=== PATIENT | female | born 1970 | race Caucasian/White ===

== ENCOUNTER → 2016-05-03 | Outpatient (CLI) | payer BC ==
--- NOTE | 2016-05-03 10:20 | REPMRS ---
Patient History The patient states she had a clinical breast exam in 04/2016. Family history of prostate cancer in father at age 54 and breast cancer in paternal aunt under age 50. Benign FNA biopsy of the left breast, May 18, 2009. Digital Woman Screen Mammo: May 03, 2016 - Exam #: [id number] Bilateral CC and MLO view(s) were taken. Technologist: Daphnie Maurice, Technologist Prior study comparison: February 19, 2015, digital woman screen mammo performed at [facility]. November 08, 2013, digital woman screen mammo performed at [facility]. FINDINGS: The breast tissue is heterogeneously dense. This may lower the sensitivity of mammography. There has been no change in the appearance of the mammogram from the prior studies. There is a moderate amount of residual fibroglandular tissue which is fairly symmetric. There is no interval development of dominant mass, areas of architectural distortion, or clustered microcalcification typical of malignancy. ASSESSMENT: BI-RADS/ACR category 1 mammogram. Negative. Recommendation Routine screening mammogram in 1 year (for women over age 40). This mammogram was interpreted with the aid of an FDA-approved computer-aided dectection system. Electronically Signed By: Pako Grant MD 05/03/16 0419
== END ==
LOC: M WHC 09:36
PROVIDERS: ATTEND Nurse Practitioner Family
DX: Z12.31 Encounter for screening mammogram for malignant neoplasm of breast (principal)

== ENCOUNTER → 2016-10-12 | Outpatient (CLI) | payer BC ==
[2016-10-12 17:00] LABS: ALBUMIN/GLOBULIN RATIO 1.33 (1.00-1.93); ALKALINE PHOSPHATASE 71 U/L (45-117); ALT/SGPT 43 U/L (12-78); AMYLASE 66 U/L (25-115); ANION GAP 8 MEQ/L (8-16); AST/SGOT 29 U/L (15-37); BILIRUBIN,TOTAL 0.5 MG/DL (0.2-1.0); BLOOD UREA NITROGEN 15 MG/DL (7-18); CALCIUM LEVEL 9.2 MG/DL (8.5-10.1); CARBON DIOXIDE LEVEL 30 MEQ/L (21-32); CHLORIDE LEVEL 105 MEQ/L (98-107); CREATININE FOR GFR 0.72 MG/DL (0.55-1.02); GLOMERULAR FILTRATION RATE > 60.0 (>58); GLUCOSE, FASTING 88 MG/DL (70-105); POTASSIUM SERUM 4.4 MEQ/L (3.5-5.1); SODIUM LEVEL 143 MEQ/L (136-145)
[2016-10-12 17:57] LABS: BASO % 0.6 % (0.0-1.0); EOS # 0.2 K/mm3 (0.0-0.50); EOS % 4.1 % (0.0-3.0); LARGE UNSTAINED CELL # 0.1 K/mm3 (0.0-0.4); LARGE UNSTAINED CELL % 1.6 % (0.0-4.0); LYMPH # 1.4 K/mm3 (1.5-4.5); LYMPH % 22.4 % (24.0-44.0); MEAN CORPUSCULAR HEMOGLOBIN 28.6 pg (27.0-33.0); MEAN CORPUSCULAR HGB CONC 32.7 g/dl (32.0-36.5); MEAN CORPUSCULAR VOLUME 87.4 fl (80.0-96.0); MONO # 0.3 K/mm3 (0.0-0.8); MONO % 4.3 % (0.0-5.0); NEUTROPHILS # 4.1 K/mm3 (1.8-7.7); PLATELET COUNT, AUTOMATED 399 k/mm3 (150-450); RED CELL DISTRIBUTION WIDTH 13.2 % (11.5-14.5); WHITE BLOOD COUNT 6.2 K/mm3 (4.0-10.0)
[2016-10-13 08:40] LABS: CONTROL LINE HPYORI INT CTR LINE PRESENT
== END ==
LOC: M WUC 11:05
PROVIDERS: ATTEND Family Medicine
DX: R10.84 Generalized abdominal pain (principal)

== ENCOUNTER 2017-04-14 07:57 | Day surgery (SDC) | payer BC ==
[2017-04-14] MEDS: NS 1,000 ML IV (08:30)
[2017-04-14] MEDS ORDERED: PROPOFOL 200 MG/20 ML VIAL As Ordered (09:59)
[2017-04-14] MEDS ORDERED: LIDOCAINE 2% INJ 100 MG/5 ML SYRINGE As Ordered (09:59)
== END 2017-04-14 11:04 | disposition home or self-care (01) ==
LOC: M OPP 07:57
DX: K62.5 Hemorrhage of anus and rectum (principal); R19.4 Change in bowel habit; R10.13 Epigastric pain; D12.4 Benign neoplasm of descending colon; D12.7 Benign neoplasm of rectosigmoid junction; K57.30 Diverticulosis of large intestine without perforation or abscess without bleeding; K64.8 Other hemorrhoids; B96.81 Helicobacter pylori [H. pylori] as the cause of diseases classified elsewhere; R11.10 Vomiting, unspecified; K29.70 Gastritis, unspecified, without bleeding; K44.9 Diaphragmatic hernia without obstruction or gangrene; K21.9 Gastro-esophageal reflux disease without esophagitis; R12 Heartburn; M79.7 Fibromyalgia; F41.9 Anxiety disorder, unspecified; Z88.2 Allergy status to sulfonamides; Z79.899 Other long term (current) drug therapy; Z80.1 Family history of malignant neoplasm of trachea, bronchus and lung; Z80.42 Family history of malignant neoplasm of prostate
CPT/HCPCS: 45380

== ENCOUNTER → 2017-08-14 | Outpatient (CLI) | payer BC | LOC: M WHC 13:30 | DX: Z12.31 Encounter for screening mammogram for malignant neoplasm of breast (principal) | CPT/HCPCS: 77067 ==

== ENCOUNTER 2018-11-26 06:30 | Emergency (ER) | payer BC ==
[~2018-11-26] VITALS: Ht 162.6 cm; Wt 61.8 kg
[~2018-11-26 06:30] MED LIST: AMIT10TA; GABA-843; OMEP40CA97
[2018-11-26] MEDS ORDERED: BENA25CA4 PO (06:42)
[2018-11-26] MEDS ORDERED: NS 1,000 ML IV SCH (07:09)
[2018-11-26] MEDS ORDERED: CLINDAMYCIN 600 MG in IV 1 EA IV ONE (07:15)
[2018-11-26] MEDS ORDERED: KETOROLAC 30 MG/ML VIAL (J1885) IV ONE (07:15)
[2018-11-26 07:58] LABS: BASO % 0.4 % (0.0-1.0); EOS # 0.1 10^3/uL (0.0-0.5); EOS % 2.6 % (0.0-3.0); HEMATOCRIT 41.6 % (36.0-47.0); HEMOGLOBIN 13.3 g/dl (12.0-15.5); LYMPH # 0.9 10^3/uL (1.5-5.0); LYMPH % 17.1 % (24.0-44.0); MEAN CORPUSCULAR HEMOGLOBIN 28.3 pg (27.0-33.0); MEAN CORPUSCULAR VOLUME 88.5 fl (80.0-96.0); MONO # 0.4 10^3/uL (0.0-0.8); MONO % 8.1 % (0.0-5.0); NEUTROPHILS # 3.9 10^3/uL (1.5-8.5); NEUTROPHILS % 71.4 % (36.0-66.0); PLATELET COUNT, AUTOMATED 280 10^3/uL (150-450); WHITE BLOOD COUNT 5.5 10^3/uL (4.0-10.0)
[2018-11-26 08:18] LABS: ALBUMIN 4.1 GM/DL (3.2-5.2); ALT/SGPT 37 U/L (12-78); AMYLASE 61 U/L (25-115); BILIRUBIN,DIRECT 0.1 MG/DL (0.0-0.2); BILIRUBIN,TOTAL 0.8 MG/DL (0.2-1.0); BLOOD UREA NITROGEN 15 MG/DL (7-18); C REACTIVE PROTEIN QUANTITATIV 0.42 MG/DL (0.00-0.30); CALCIUM LEVEL 9.2 MG/DL (8.5-10.1); CARBON DIOXIDE LEVEL 27 MEQ/L (21-32); CHLORIDE LEVEL 108 MEQ/L (98-107); CREATININE FOR GFR 0.76 MG/DL (0.55-1.30); GLOMERULAR FILTRATION RATE > 60.0 (>51); GLUCOSE, FASTING 96 MG/DL (70-100); POTASSIUM SERUM 4.5 MEQ/L (3.5-5.1); SODIUM LEVEL 140 MEQ/L (136-145); TOTAL PROTEIN 7.4 GM/DL (6.4-8.2)
[2018-11-26 08:26] LABS: INR 1.01
[2018-11-26 08:26] LABS: ERYTHROCYTE SEDIMENTATION RATE 10 mm/hr (0-30)
[2018-11-26 08:27] LABS: PARTIAL THROMBOPLASTIN TIME 39.2 SECONDS (25.0-38.4)
[2018-11-26] MEDS ORDERED: CEPHALEXIN 500 MG CAP PO ONE (08:45)
[2018-11-26] MEDS ORDERED: CEPH500C PO (08:48)
[2018-11-26] MEDS ORDERED: IBUP80TA PO (08:50)
[2018-11-26 09:07] VITALS: BP 115/70
== END 2018-11-26 09:09 | disposition home or self-care (01) ==
LOC: M ED 06:30
DX: L03.113 Cellulitis of right upper limb (principal); M79.7 Fibromyalgia; F41.9 Anxiety disorder, unspecified; Z79.899 Other long term (current) drug therapy; Z88.2 Allergy status to sulfonamides
CPT/HCPCS: 80048; 80076; 82150; 83605; 85025; 85610; 85652; 85730; 86140; 87040; 96365; 96375; 99284; J1885

== ENCOUNTER → 2019-02-25 | Outpatient (REF) | payer BC ==
[~2019-02-25] MED LIST changes: +BENA25CA4 PO; +CEPH500C PO; +IBUP80TA PO
[2019-02-25 12:28] LABS: CHOLESTEROL RISK RATIO 5.341 (<5)
== END ==
LOC: M LABDRAW1 11:43
PROVIDERS: ATTEND Physician Assistant Medical
DX: E55.9 Vitamin D deficiency, unspecified (principal); E78.2 Mixed hyperlipidemia

== ENCOUNTER → 2020-11-09 | Outpatient (CLI) | payer BC ==
[~2020-11-09] MED LIST changes: -AMIT10TA; +AMIT10TA7; +GABA-282; -GABA-843; +OMEP40CA4; -OMEP40CA97
[2020-11-09 12:15] LABS: ALBUMIN 4.1 GM/DL (3.2-5.2); ALT/SGPT 48 U/L (12-78); BILIRUBIN,TOTAL 0.5 MG/DL (0.2-1.0); BLOOD UREA NITROGEN 18 MG/DL (7-18); CALCIUM LEVEL 9.3 MG/DL (8.5-10.1); CARBON DIOXIDE LEVEL 30 MEQ/L (21-32); CHLORIDE LEVEL 110 MEQ/L (98-107); CHOLESTEROL LEVEL 216 MG/DL (<200); CHOLESTEROL RISK RATIO 4.595 (<5); CREATININE FOR GFR 0.85 MG/DL (0.55-1.30); GLOMERULAR FILTRATION RATE > 60.0 (>51); GLUCOSE, FASTING 101 MG/DL (70-100); HDL CHOLESTEROL 47 MG/DL (>40); LDL CHOLESTEROL 157 MG/DL (<100); NON-HDL-C 169 MG/DL; POTASSIUM SERUM 4.5 MEQ/L (3.5-5.1); SODIUM LEVEL 142 MEQ/L (136-145); TRIGLYCERIDES LEVEL 58 MG/DL (<150)
== END ==
LOC: M WUC 08:23
PROVIDERS: ATTEND Nurse Practitioner Family
DX: Z00.00 Encounter for general adult medical examination without abnormal findings (principal)

== ENCOUNTER → 2021-01-20 | Outpatient (CLI) | payer BC ==
--- NOTE | 2021-01-20 10:21 | REPMRS ---
Patient History The patient states she has not had a clinical breast exam in over a year. Family history of breast cancer under age 50 in paternal aunt, prostate cancer at age 54 in father. Benign FNA biopsy of the left breast, May 18, 2009. No Hormone Replacement Therapy Moderna vaccine 04/12/20 left arm. 05/08/20 left arm. booster 01/04/21 left arm. Patient states no breast complaints today. Patient has signed MRS History Sheet. Digital Woman Screen Mammo: January 20, 2021 - Exam #: [id number] Bilateral CC and MLO view(s) were taken. Technologist: RT Arline Prior study comparison: August 14, 2017, bilateral digital woman screen mammo performed at [facility]. May 03, 2016, digital woman screen mammo performed at [facility]. FINDINGS: The breast tissue is heterogeneously dense. This may lower the sensitivity of mammography. Screening. Digital screening (2D) mammography was performed bilaterally in the CC and MLO projections. Additionally, breast tomosynthesis (3D mammography) was performed bilaterally in the CC and MLO projections. Todays exam was compared to the prior exam/exams. By history, the patient has no complaints of a palpable breast abnormality or other significant breast complaints. The Volpara volumetric breast density category is C, the breasts are heterogenously dense which may obscure small masses. The breasts are unchanged in size and shape. There are no rosa-soft tissue densities or spiculated masses. There is no internal architectural distortion. There are no suspicious rosa-calcific clusters. Skin thickening or nipple retraction is not present. IMPRESSION: BI-RADS Category 2- Benign Findings. There is no evidence of malignant alteration of the breasts. Followup examination recommended in one year. This mammogram was read with the assistance of [employer],an FDA approved computer aided detection system for mammography. The lifetime Tyrer-Cuzick score is 11.7% Negative x-ray reports should not delay surgical consultation if a dominant or clinically suspicious mass is present. Due to the density of the breasts, MRI/whole breast screening ultrasound is warranted. Not all breast cancers can be identified by mammography. Therefore, we recommend that you continue to perform regular breast self-examination and physical examination and then promptly contact your physician of any concerns or changes. Adenosis and dense breasts may obscure an underlying neoplasm. No significant changes when compared with prior studies. Assessment: BI-RADS/ACR category 2 mammogram. Benign Findings. Recommendation Routine screening mammogram of both breasts in 1 year. Electronically Signed By: Leon Mcbride MD 01/20/21 2496
== END ==
LOC: M WHC 07:59
PROVIDERS: ATTEND Nurse Practitioner Family
DX: Z12.31 Encounter for screening mammogram for malignant neoplasm of breast (principal); Z80.3 Family history of malignant neoplasm of breast; Z80.42 Family history of malignant neoplasm of prostate

== ENCOUNTER → 2021-10-13 | Outpatient (CLI) | payer BC ==
[2021-10-13 12:03] LABS: BASO % 0.7 % (0.0-1.0); EOS # 0.2 10^3/uL (0.0-0.5); EOS % 2.4 % (0.0-3.0); HEMOGLOBIN 13.6 g/dl (12.0-15.5); LYMPH # 1.6 10^3/uL (1.5-5.0); LYMPH % 25.7 % (24.0-44.0); MEAN CORPUSCULAR HEMOGLOBIN 27.5 pg (27.0-33.0); MEAN CORPUSCULAR HGB CONC 30.9 g/dl (32.0-36.5); MEAN CORPUSCULAR VOLUME 89.1 fl (80.0-96.0); MONO # 0.5 10^3/uL (0.0-0.8); MONO % 7.5 % (2.0-8.0); NEUTROPHILS # 3.9 10^3/uL (1.5-8.5); NEUTROPHILS % 63.4 % (36.0-66.0); PLATELET COUNT, AUTOMATED 297 10^3/uL (150-450); RED BLOOD COUNT 4.94 10^6/uL (4.00-5.40); WHITE BLOOD COUNT 6.2 10^3/uL (4.0-10.0)
[2021-10-13 12:10] LABS: ALBUMIN 4.1 GM/DL (3.2-5.2); ALT/SGPT 28 U/L (12-78); BILIRUBIN,TOTAL 0.7 MG/DL (0.2-1.0); BLOOD UREA NITROGEN 13 MG/DL (7-18); CALCIUM LEVEL 9.3 MG/DL (8.5-10.1); CARBON DIOXIDE LEVEL 30 MEQ/L (21-32); CHLORIDE LEVEL 105 MEQ/L (98-107); CREATININE FOR GFR 0.85 MG/DL (0.55-1.30); GLOMERULAR FILTRATION RATE > 60.0 (>51); GLUCOSE, FASTING 102 MG/DL (70-100); POTASSIUM SERUM 4.1 MEQ/L (3.5-5.1); SODIUM LEVEL 140 MEQ/L (136-145); TOTAL PROTEIN 7.5 GM/DL (6.4-8.2)
[2021-10-13 12:33] LABS: ERYTHROCYTE SEDIMENTATION RATE 6 mm/hr (0-30)
== END ==
LOC: M WUC 09:32
PROVIDERS: ATTEND Physician Assistant
DX: J01.90 Acute sinusitis, unspecified (principal); R51.9 Headache, unspecified

== ENCOUNTER 2021-12-15 06:28 | Emergency (ER) | payer BC ==
[~2021-12-15] VITALS: Ht 162.6 cm; Wt 61.4 kg
[2021-12-15 07:15] LABS: BASO % 0.4 % (0.0-1.0); EOS # 0.1 10^3/uL (0.0-0.5); EOS % 2.6 % (0.0-3.0); HEMATOCRIT 37.8 % (36.0-47.0); HEMOGLOBIN 11.8 g/dl (12.0-15.5); LYMPH # 1.1 10^3/uL (1.5-5.0); LYMPH % 22.1 % (24.0-44.0); MEAN CORPUSCULAR HEMOGLOBIN 28.2 pg (27.0-33.0); MEAN CORPUSCULAR HGB CONC 31.2 g/dl (32.0-36.5); MEAN CORPUSCULAR VOLUME 90.4 fl (80.0-96.0); MONO # 0.4 10^3/uL (0.0-0.8); NEUTROPHILS # 3.4 10^3/uL (1.5-8.5); NEUTROPHILS % 67.5 % (36.0-66.0); PLATELET COUNT, AUTOMATED 250 10^3/uL (150-450); RED BLOOD COUNT 4.18 10^6/uL (4.00-5.40)
[2021-12-15] MEDS ORDERED: MORPHINE 2 MG/ML 1ML VIAL IV ONE (07:30)
[2021-12-15] MEDS ORDERED: diazePAM 10MG/2ML SYRINGE (J3360 PER 5MG) IV ONE (07:30)
[2021-12-15] MEDS ORDERED: ONDANSETRON 4MG 2ML VIAL IV ONE (07:30)
[2021-12-15 07:41] LABS: BLOOD UREA NITROGEN 27 MG/DL (7-18); CALCIUM LEVEL 9.5 MG/DL (8.5-10.1); CARBON DIOXIDE LEVEL 28 MEQ/L (21-32); CHLORIDE LEVEL 108 MEQ/L (98-107); CREATININE FOR GFR 0.86 MG/DL (0.55-1.30); GLOMERULAR FILTRATION RATE > 60.0 (>51); GLUCOSE, FASTING 110 MG/DL (70-100); POTASSIUM SERUM 4.2 MEQ/L (3.5-5.1); SODIUM LEVEL 140 MEQ/L (136-145)
[2021-12-15 07:49] LABS: CK-MB VALUE MASS < 1.0 NG/ML (<3.6); CPK CREATINE PHOSPHOKINASE 97 U/L (26-192); MB/CK RELATIVE INDEX 1.03 (< OR =4)
[2021-12-15 11:16] VITALS: BP 111/71
[2021-12-15] MEDS ORDERED: ACET-910 PO (13:59)
[2021-12-15] MEDS ORDERED: HOME MED LIST COMPLETE! XX SCH (14:00)
[2021-12-15] MEDS ORDERED: tiZANidine 4 MG TAB PO ONE (15:45)
[2021-12-15] MEDS ORDERED: PERCOCET 5MG/325MG TAB PO ONE (15:45)
[2021-12-15] MEDS ORDERED: PERC5TAB12 PO (15:52)
[2021-12-15] MEDS ORDERED: TIZA2CAP PO (15:52)
== END 2021-12-15 16:18 | disposition home or self-care (01) ==
LOC: M ED 06:28
DX: M62.838 Other muscle spasm (principal); M50.121 Cervical disc disorder at C4-C5 level with radiculopathy; Z90.710 Acquired absence of both cervix and uterus; Z88.2 Allergy status to sulfonamides; Z79.899 Other long term (current) drug therapy
CPT/HCPCS: 71045; 72141; 80048; 82550; 82553; 84484; 85025; 93005; 93041; 94760; 96374; 96375; 99285; J2270; J2405; J3360

== ENCOUNTER → 2022-11-04 | Outpatient (CLI) | payer BC ==
[~2022-11-04] MED LIST changes: +ACET-910 PO; +PERC5TAB12 PO; +TIZA2CAP PO
[2022-11-04 11:07] LABS: ALBUMIN 3.8 G/DL (3.2-5.2); ALKALINE PHOSPHATASE 60 U/L (46-116); ALT/SGPT 29 U/L (7.0-40); AST/SGOT 22 U/L (<34); BILIRUBIN,TOTAL 0.8 MG/DL (0.3-1.2); BLOOD UREA NITROGEN 16 MG/DL (9-23); CALCIUM LEVEL 8.9 MG/DL (8.5-10.1); CARBON DIOXIDE LEVEL 30 MMOL/L (20-31); CHLORIDE LEVEL 108 MMOL/L (98-107); CHOLESTEROL LEVEL 186 MG/DL (<200); CREATININE FOR GFR 0.71 MG/DL (0.55-1.30); GLOMERULAR FILTRATION RATE > 60.0 (>51); GLUCOSE, FASTING 88 MG/DL (60-100); HDL CHOLESTEROL 40.4 MG/DL (>40); NON-HDL-C 145.6 MG/DL; POTASSIUM SERUM 4.5 MMOL/L (3.5-5.1); SODIUM LEVEL 143 MMOL/L (136-145); TOTAL PROTEIN 6.3 G/DL (5.7-8.2); TRIGLYCERIDES LEVEL 108 MG/DL (<150)
[2022-11-04 11:09] LABS: TOTAL 25(OH) VITAMIN D 22.7 NG/ML (20.0-100.0)
== END ==
LOC: M WUC 08:21
PROVIDERS: ATTEND Nurse Practitioner Family
DX: E78.2 Mixed hyperlipidemia (principal); E55.9 Vitamin D deficiency, unspecified

== ENCOUNTER → 2023-03-15 | Outpatient (CLI) | payer BC | LOC: M ADAMS 08:19 | PROVIDERS: ATTEND Nurse Practitioner Family | DX: M25.552 Pain in left hip (principal); M47.816 Spondylosis without myelopathy or radiculopathy, lumbar region ==

== ENCOUNTER → 2023-03-28 | Outpatient (CLI) | payer BC | LOC: M WHC 07:24 | PROVIDERS: ATTEND Nurse Practitioner Family | DX: Z12.31 Encounter for screening mammogram for malignant neoplasm of breast (principal); R92.323 Mammographic fibroglandular density, bilateral breasts ==

== ENCOUNTER → 2023-08-24 | Outpatient (CLI) | payer OTHER | LOC: M WUC 11:40 | PROVIDERS: ATTEND Nurse Practitioner Family | DX: R05.9 Cough, unspecified (principal) ==

== ENCOUNTER 2023-09-27 18:07 | Emergency (ER) | payer OTHER ==
[~2023-09-27] VITALS: Ht 162.6 cm; Wt 62.3 kg
[2023-09-27] MEDS: methylPREDNISolone 125MG 2ML VIAL IV ONE (18:21)
[2023-09-27] MEDS: FAMOTIDINE 20MG/2ML VIAL IVP ONE (18:23)
[2023-09-27 18:24] VITALS: TEMP 97
[2023-09-27 18:33] LABS: BASO % 0.3 % (0.0-1.0); EOS # 0.1 10^3/uL (0.0-0.5); EOS % 1.5 % (0.0-3.0); HEMATOCRIT 42.6 % (36.0-47.0); HEMOGLOBIN 14.2 g/dl (12.0-15.5); LYMPH # 3.6 10^3/uL (1.5-5.0); LYMPH % 48.8 % (24.0-44.0); MEAN CORPUSCULAR HEMOGLOBIN 28.5 pg (27.0-33.0); MEAN CORPUSCULAR HGB CONC 33.3 g/dl (32.0-36.5); MEAN CORPUSCULAR VOLUME 85.4 fl (80.0-96.0); MONO # 0.5 10^3/uL (0.0-0.8); MONO % 6.6 % (2.0-8.0); NEUTROPHILS # 3.1 10^3/uL (1.5-8.5); NEUTROPHILS % 42.4 % (36.0-66.0); PLATELET COUNT, AUTOMATED 338 10^3/uL (150-450); RED BLOOD COUNT 4.99 10^6/uL (4.00-5.40); WHITE BLOOD COUNT 7.3 10^3/uL (4.0-10.0)
[2023-09-27 18:58] LABS: CK-MB VALUE MASS < 1.0 NG/ML (<3.6)
[2023-09-27 19:00] LABS: BLOOD UREA NITROGEN 19 MG/DL (9-23); CALCIUM LEVEL 9.6 MG/DL (8.5-10.1); CARBON DIOXIDE LEVEL 24 MMOL/L (20-31); CHLORIDE LEVEL 107 MMOL/L (98-107); CPK CREATINE PHOSPHOKINASE 112 U/L (34-145); CREATININE FOR GFR 0.84 MG/DL (0.55-1.30); GLOMERULAR FILTRATION RATE > 60.0 (>51); GLUCOSE, FASTING 160 MG/DL (60-100); MB/CK RELATIVE INDEX 0.89 (< OR =4); POTASSIUM SERUM 3.8 MMOL/L (3.5-5.1); SODIUM LEVEL 141 MMOL/L (136-145)
[2023-09-27 20:10] LABS: CK-MB VALUE MASS < 1.0 NG/ML (<3.6)
[2023-09-27 20:12] LABS: CPK CREATINE PHOSPHOKINASE 114 U/L (34-145); MB/CK RELATIVE INDEX 0.87 (< OR =4)
[2023-09-27] MEDS: NS 1,000 ML IV ONE (20:33)
[2023-09-27] MEDS ORDERED: EPIP0.3I2 IM (22:04)
[2023-09-27 23:10] VITALS: BP 121/69; O2SAT 99
== END 2023-09-27 23:12 | disposition home or self-care (01) ==
LOC: M ED 18:07
DX: S30.0XXA Contusion of lower back and pelvis, initial encounter (principal); T63.441A Toxic effect of venom of bees, accidental (unintentional), initial encounter; I45.81 Long QT syndrome; M47.812 Spondylosis without myelopathy or radiculopathy, cervical region; M25.78 Osteophyte, vertebrae; M50.30 Other cervical disc degeneration, unspecified cervical region; M79.7 Fibromyalgia; F41.9 Anxiety disorder, unspecified; Z79.899 Other long term (current) drug therapy; Z79.1 Long term (current) use of non-steroidal anti-inflammatories (NSAID); Z91.030 Bee allergy status; Z88.2 Allergy status to sulfonamides; Y92.9 Unspecified place or not applicable; Y93.89 Activity, other specified; Y99.9 Unspecified external cause status
CPT/HCPCS: 70450; 71046; 72125; 72192; 80048; 82550; 82553; 84484; 85025; 93005; 93041; 94760; 96374; 96375; 99285; J2919; S0028

== ENCOUNTER → 2023-11-08 | Outpatient (CLI) | payer OTHER ==
[~2023-11-08] MED LIST changes: +EPIP0.3I2 IM
[2023-11-08 10:42] LABS: ALKALINE PHOSPHATASE 68 U/L (46-116); ALT/SGPT 30 U/L (7.0-40); AST/SGOT 20 U/L (<34); BILIRUBIN,TOTAL 0.6 MG/DL (0.3-1.2); BLOOD UREA NITROGEN 15 MG/DL (9-23); CALCIUM LEVEL 9.2 MG/DL (8.5-10.1); CARBON DIOXIDE LEVEL 29 MMOL/L (20-31); CHLORIDE LEVEL 109 MMOL/L (98-107); CHOLESTEROL LEVEL 262 MG/DL (<200); CHOLESTEROL RISK RATIO 5.99 (<5); CREATININE FOR GFR 0.75 MG/DL (0.55-1.30); GLOMERULAR FILTRATION RATE > 60.0 (>51); GLUCOSE, FASTING 94 MG/DL (60-100); HDL CHOLESTEROL 43.7 MG/DL (>40); LDL CHOLESTEROL 197.1 MG/DL (<100); NON-HDL-C 218.3 MG/DL; POTASSIUM SERUM 4.5 MMOL/L (3.5-5.1); SODIUM LEVEL 140 MMOL/L (136-145); TOTAL PROTEIN 6.7 G/DL (5.7-8.2); TRIGLYCERIDES LEVEL 106 MG/DL (<150)
[2023-11-08 10:45] LABS: TOTAL 25(OH) VITAMIN D 30.7 NG/ML (20.0-100.0)
== END ==
LOC: M WUC 08:13
PROVIDERS: ATTEND Nurse Practitioner Family
DX: E78.2 Mixed hyperlipidemia (principal); E55.9 Vitamin D deficiency, unspecified

== ENCOUNTER → 2024-02-13 | Outpatient (CLI) | payer OTHER ==
[~2024-02-13] MED LIST changes: +GABA-1172; -GABA-282
[2024-02-13 10:23] LABS: BASO % 0.4 % (0.0-1.0); EOS # 0.1 10^3/uL (0.0-0.5); EOS % 0.7 % (0.0-3.0); HEMATOCRIT 42.6 % (36.0-47.0); HEMOGLOBIN 13.8 g/dl (12.0-15.5); MEAN CORPUSCULAR HEMOGLOBIN 28.2 pg (27.0-33.0); MEAN CORPUSCULAR HGB CONC 32.4 g/dl (32.0-36.5); MEAN CORPUSCULAR VOLUME 86.9 fl (80.0-96.0); MONO # 0.6 10^3/uL (0.0-0.8); MONO % 7.4 % (2.0-8.0); NEUTROPHILS # 5.8 10^3/uL (1.5-8.5); NEUTROPHILS % 68.1 % (36.0-66.0); PLATELET COUNT, AUTOMATED 320 10^3/uL (150-450); WHITE BLOOD COUNT 8.6 10^3/uL (4.0-10.0)
[2024-02-13 10:27] LABS: ERYTHROCYTE SEDIMENTATION RATE 10 mm/hr (0-30); URIC ACID 4.1 MG/DL (3.1-7.8)
[2024-02-13 10:30] LABS: ALBUMIN 4.3 G/DL (3.2-5.2); ALKALINE PHOSPHATASE 65 U/L (35-104); ALT/SGPT 26 U/L (7.0-40); AST/SGOT 18 U/L (<34); BILIRUBIN,TOTAL 0.7 MG/DL (0.3-1.2); BLOOD UREA NITROGEN 18 MG/DL (9-23); C REACTIVE PROTEIN QUANTITATIV < 0.50 MG/DL (<1.0); CARBON DIOXIDE LEVEL 31 MMOL/L (20-31); CHLORIDE LEVEL 107 MMOL/L (98-107); CREATININE FOR GFR 0.75 MG/DL (0.55-1.30); GLOMERULAR FILTRATION RATE > 60.0 (>51); GLUCOSE, FASTING 86 MG/DL (60-100); IRON (FE) 77 UG/DL (50-170); PERCENT SATURATION 26.6 % (13.2-45.0); POTASSIUM SERUM 4.2 MMOL/L (3.5-5.1); RHEUMATOID FACTOR QUANT < 3.5 IU/ML (<14); SODIUM LEVEL 144 MMOL/L (136-145); TOTAL IRON BINDING CAPACITY 289 UG/DL (250-425); TOTAL PROTEIN 7.2 G/DL (5.7-8.2)
[2024-02-13 10:34] LABS: FERRITIN 94.9 NG/ML (7.3-270.7); FREE T4 1.27 NG/DL (0.89-1.76)
[2024-02-13 10:35] LABS: FOLATE 13.9 NG/ML (>5.4)
[2024-02-13 11:33] LABS: VITAMIN B12 LEVEL 669 PG/ML (211-911)
[2024-02-15 13:16] LABS: SSA SJOGRENS A <1.0 NEG AI (<1.0 NEG); SSB SJOGRENS B <1.0 NEG AI (<1.0 NEG)
[2024-02-15 14:55] LABS: ANA SCREEN, IFA NEGATIVE (NEGATIVE); CYCLIC CITRULLINATED PEPTIDE 17 UNITS (<20)
== END ==
LOC: M WUC 08:10
PROVIDERS: ATTEND Nurse Practitioner Family
DX: M12.9 Arthropathy, unspecified (principal); R20.2 Paresthesia of skin

== ENCOUNTER → 2024-02-28 | Outpatient (CLI) | payer OTHER | LOC: M RAD 07:28 | PROVIDERS: ATTEND Nurse Practitioner Family | DX: R51.9 Headache, unspecified (principal) ==

== ENCOUNTER → 2024-04-30 | Outpatient (CLI) | payer OTHER | LOC: M WHC 06:54 | PROVIDERS: ATTEND Nurse Practitioner Family | DX: Z12.31 Encounter for screening mammogram for malignant neoplasm of breast (principal) ==

== ENCOUNTER 2024-05-03 16:47 | Emergency (ER) | payer OTHER ==
[~2024-05-03] VITALS: Ht 162.6 cm; Wt 64.0 kg
[2024-05-03] MEDS ORDERED: BREO1INH (16:56)
[2024-05-03] MEDS: tiZANidine 4 MG TAB PO ONE (19:45)
[2024-05-03] MEDS: KETOROLAC 30 MG/ML 1ML VIAL IV ONE (20:08)
[2024-05-03 21:30] VITALS: BP 101/66; TEMP 98; O2SAT 97
[2024-05-03] MEDS ORDERED: TIZA2CAP PO (22:17)
[2024-05-03] MEDS ORDERED: NAPR-885 PO (22:17)
[2024-05-03] MEDS ORDERED: OMEP1CAP73 PO (22:17)
== END 2024-05-03 22:30 | disposition home or self-care (01) ==
LOC: M ED 16:47
DX: M26.641 Arthritis of right temporomandibular joint (principal); M45.A Non-radiographic axial spondyloarthritis; M79.7 Fibromyalgia; Z88.2 Allergy status to sulfonamides; Z79.1 Long term (current) use of non-steroidal anti-inflammatories (NSAID); Z79.899 Other long term (current) drug therapy
CPT/HCPCS: 70486; 72125; 96374; 99283; J1885

== ENCOUNTER → 2024-05-25 | Outpatient (CLI) | payer OTHER ==
[~2024-05-25] MED LIST changes: +BREO1INH; +NAPR-885 PO; +OMEP1CAP73 PO
== END ==
LOC: M RAD 09:22
PROVIDERS: ATTEND Physician Assistant Medical
DX: R29.2 Abnormal reflex (principal); M50.20 Other cervical disc displacement, unspecified cervical region; M99.63 Osseous and subluxation stenosis of intervertebral foramina of lumbar region

== ENCOUNTER → 2024-08-28 | Outpatient (CLI) | payer OTHER ==
[~2024-08-28] MED LIST changes: +AMIT10TA11; -AMIT10TA7
[2024-08-28 14:21] LABS: INR 0.91
[2024-08-28 14:22] LABS: BASO # 0.1 10^3/uL (0.0-0.2); BASO % 0.9 % (0.0-1.0); EOS # 0.1 10^3/uL (0.0-0.5); EOS % 2.4 % (0.0-3.0); LYMPH # 1.8 10^3/uL (1.5-5.0); LYMPH % 34.4 % (24.0-44.0); MONO # 0.4 10^3/uL (0.0-0.8); MONO % 7.0 % (2.0-8.0); NEUTROPHILS # 2.9 10^3/uL (1.5-8.5); NEUTROPHILS % 55.1 % (36.0-66.0); PLATELET COUNT, AUTOMATED 319 10^3/uL (150-450)
[2024-08-28 14:41] LABS: ESTIMATED AVERAGE GLUCOSE 108.0 MG/DL (60-110)
[2024-08-28 14:42] LABS: CALCIUM LEVEL 9.2 MG/DL (8.5-10.1); CARBON DIOXIDE LEVEL 29 MMOL/L (20-31); CHLORIDE LEVEL 104 MMOL/L (98-107); CREATININE FOR GFR 0.71 MG/DL (0.55-1.30); GLOMERULAR FILTRATION RATE > 90.0 (>51); POTASSIUM SERUM 4.0 MMOL/L (3.5-5.1); SODIUM LEVEL 145 MMOL/L (136-145)
== END ==
LOC: M WUC 11:35
PROVIDERS: ATTEND Nurse Practitioner Family
DX: Z01.818 Encounter for other preprocedural examination (principal)

== ENCOUNTER → 2024-12-12 | Outpatient (REF) | payer OTHER | LOC: M LAB REF 16:51 | PROVIDERS: ATTEND Nurse Practitioner Family | DX: N39.0 Urinary tract infection, site not specified (principal); M12.9 Arthropathy, unspecified; R68.2 Dry mouth, unspecified ==

== ENCOUNTER → 2024-12-13 | Outpatient (CLI) | payer OTHER ==
[2024-12-13 14:00] LABS: BASO # 0.0 10^3/uL (0.0-0.2); BASO % 0.5 % (0.0-1.0); EOS # 0.2 10^3/uL (0.0-0.5); EOS % 3.1 % (0.0-3.0); LYMPH # 1.5 10^3/uL (1.5-5.0); LYMPH % 26.6 % (24.0-44.0); MONO # 0.5 10^3/uL (0.0-0.8); MONO % 8.4 % (2.0-8.0); NEUTROPHILS # 3.4 10^3/uL (1.5-8.5); NEUTROPHILS % 61.2 % (36.0-66.0); PLATELET COUNT, AUTOMATED 314 10^3/uL (150-450)
[2024-12-13 14:10] LABS: FREE T4 1.24 NG/DL (0.89-1.76)
[2024-12-13 14:11] LABS: RHEUMATOID FACTOR QUANT < 3.5 IU/ML (<14)
[2024-12-13 14:12] LABS: ALT/SGPT 47 U/L (7.0-40); AST/SGOT 24 U/L (<34); C REACTIVE PROTEIN QUANTITATIV < 0.50 MG/DL (<1.0); CALCIUM LEVEL 9.7 MG/DL (8.5-10.1); CARBON DIOXIDE LEVEL 28 MMOL/L (20-31); CHLORIDE LEVEL 108 MMOL/L (98-107); CREATININE FOR GFR 0.77 MG/DL (0.55-1.30); GLOMERULAR FILTRATION RATE > 90.0 (>51); POTASSIUM SERUM 4.7 MMOL/L (3.5-5.1); SODIUM LEVEL 147 MMOL/L (136-145)
[2024-12-16 13:04] LABS: SSA SJOGRENS A <1.0 NEG AI (<1.0 NEG); SSB SJOGRENS B <1.0 NEG AI (<1.0 NEG)
== END ==
LOC: M ADAMS 07:45
PROVIDERS: ATTEND Nurse Practitioner Family
DX: M12.9 Arthropathy, unspecified (principal); R05.9 Cough, unspecified; R68.2 Dry mouth, unspecified

== ENCOUNTER → 2024-12-26 | Outpatient (REF) | payer OTHER ==
[2024-12-26 14:39] LABS: CALCIUM LEVEL 9.3 MG/DL (8.5-10.1); CARBON DIOXIDE LEVEL 30 MMOL/L (20-31); CHLORIDE LEVEL 106 MMOL/L (98-107); CREATININE FOR GFR 0.74 MG/DL (0.55-1.30); GLOMERULAR FILTRATION RATE > 90.0 (>51); POTASSIUM SERUM 4.6 MMOL/L (3.5-5.1); SODIUM LEVEL 144 MMOL/L (136-145)
[2024-12-26 14:41] LABS: BASO # 0.0 10^3/uL (0.0-0.2); BASO % 0.7 % (0.0-1.0); EOS # 0.1 10^3/uL (0.0-0.5); EOS % 1.8 % (0.0-3.0); LYMPH # 1.7 10^3/uL (1.5-5.0); LYMPH % 31.3 % (24.0-44.0); MONO # 0.4 10^3/uL (0.0-0.8); MONO % 7.5 % (2.0-8.0); NEUTROPHILS # 3.2 10^3/uL (1.5-8.5); NEUTROPHILS % 58.3 % (36.0-66.0); PLATELET COUNT, AUTOMATED 326 10^3/uL (150-450)
== END ==
LOC: M SFHCADAM 13:22
PROVIDERS: ATTEND Internal Medicine Cardiovascular Disease
DX: I48.0 Paroxysmal atrial fibrillation (principal); I50.9 Heart failure, unspecified

== ENCOUNTER 2025-01-08 10:44 | Emergency (ER) | payer OTHER ==
[~2025-01-08] VITALS: Ht 162.6 cm; Wt 62.4 kg
[2025-01-08 11:22] LABS: BASO # 0.0 10^3/uL (0.0-0.2); BASO % 0.5 % (0.0-1.0); EOS # 0.1 10^3/uL (0.0-0.5); EOS % 1.5 % (0.0-3.0); LYMPH # 1.5 10^3/uL (1.5-5.0); LYMPH % 24.7 % (24.0-44.0); MONO # 0.5 10^3/uL (0.0-0.8); MONO % 7.6 % (2.0-8.0); NEUTROPHILS # 4.0 10^3/uL (1.5-8.5); NEUTROPHILS % 65.4 % (36.0-66.0); PLATELET COUNT, AUTOMATED 287 10^3/uL (150-450)
[2025-01-08] MEDS: ASPIRIN 81 MG CHEWABLE TABLET PO ONE (11:32)
[2025-01-08 11:40] VITALS: BP 113/71
[2025-01-08] MEDS: NITROGLYCERIN 0.4 MG SUBL TABLET SL PRN (11:40)
[2025-01-08 11:53] LABS: CALCIUM LEVEL 9.5 MG/DL (8.5-10.1); CARBON DIOXIDE LEVEL 28 MMOL/L (20-31); CHLORIDE LEVEL 104 MMOL/L (98-107); CK-MB VALUE MASS < 1.0 NG/ML (<3.6); CPK CREATINE PHOSPHOKINASE 97 U/L (34-145); CREATININE FOR GFR 0.71 MG/DL (0.55-1.30); GLOMERULAR FILTRATION RATE > 90.0 (>51); POTASSIUM SERUM 3.7 MMOL/L (3.5-5.1); SODIUM LEVEL 142 MMOL/L (136-145)
[2025-01-08] MEDS ORDERED: ISOVUE-370 76% 100 ML VIAL As Ordered ONE (12:27)
[2025-01-08] MEDS ORDERED: NITR0.4S14 SL (12:54)
[2025-01-08] MEDS ORDERED: BISO5TAB14 PO (12:54)
[2025-01-08] MEDS ORDERED: FAMO1TAB11 PO (12:54)
[2025-01-08] MEDS ORDERED: ATOR1TAB21 PO (12:54)
[2025-01-08] MEDS ORDERED: AMLO2.5T3 PO (12:54)
[2025-01-08] MEDS ORDERED: ASPI81TA26 PO (12:54)
[2025-01-08] MEDS ORDERED: HOME MED LIST COMPLETE! XX SCH (12:55)
[2025-01-08] MEDS ORDERED: MAG-400T7 PO (12:55)
[2025-01-08 13:26] LABS: CK-MB VALUE MASS < 1.0 NG/ML (<3.6)
[2025-01-08 13:27] LABS: CPK CREATINE PHOSPHOKINASE 86 U/L (34-145)
[2025-01-08 14:56] VITALS: BP 117/73; TEMP 98.7; O2SAT 100
== END 2025-01-08 14:57 | disposition home or self-care (01) ==
LOC: M ED 10:44
DX: R07.9 Chest pain, unspecified (principal); F41.9 Anxiety disorder, unspecified; K21.9 Gastro-esophageal reflux disease without esophagitis; M79.7 Fibromyalgia; F10.10 Alcohol abuse, uncomplicated; Z88.2 Allergy status to sulfonamides; Z79.82 Long term (current) use of aspirin; Z79.899 Other long term (current) drug therapy; Z79.02 Long term (current) use of antithrombotics/antiplatelets
CPT/HCPCS: 36415; 71045; 71275; 80048; 82550; 82553; 84484; 85025; 93005; 93041; 94760; 99285; Q9967